=== PATIENT | female | born 1970 | race Caucasian/White ===

== ENCOUNTER → 2017-06-05 20:13 | Outpatient (REF) | payer BC, SELFPAY | LOC: LAB 20:13 | PROVIDERS: Visit Provider Nurse Practitioner Family ==

== ENCOUNTER → 2019-04-22 15:13 | Outpatient (POV) | payer BC, SELFPAY ==
[2019-04-22 15:41] VITALS: BP 148/87; PULSE 85; RESP 18; O2SAT 99; BMI 39.9
--- NOTE | 2019-04-22 16:03 | XR_ITS ---
PROCEDURE: XR MULTIPLE SPINE 6+V CLINICAL INDICATION: BACK PAIN COMPARISON: No exams were available for comparison FINDINGS: There is no acute fracture dislocation or destructive lesion. Mild degenerative disc disease is seen in the midthoracic spine with some loss of disc space heights perhaps greatest at T7-8 IMPRESSION: No acute findings. Mild degenerative disc disease Dictated by: Georges Del Rio 04/22/2019 16:54 Electronically signed by Georges Del Rio in [facility] 04/22/2019 16:54
--- NOTE | 2019-04-22 16:04 | XR_ITS ---
PROCEDURE: XR SACROILIAC JOINT BI MIN 3V CLINICAL INDICATION: BACK PAIN COMPARISON: None. FINDINGS: There is sclerosis of the sacral and iliac sides of both SI joints compatible with mild sacroiliitis. There is no ankylosis or other focal bony lesion. IMPRESSION: Mild bilateral sacroiliitis Dictated by: Georges Del Rio 04/22/2019 16:52 Electronically signed by Georges Del Rio in [facility] 04/22/2019 16:52
--- NOTE | 2019-04-23 09:25 | HMH.PMCON ---
Assessment and Plan (1) Back pain Current visit: Yes Status: Resolved Category: Medical Code(s): M54.9 - Dorsalgia, unspecified (2) Chronic SI joint pain Current visit: Yes Status: Chronic Category: Medical Code(s): M53.3 - Sacrococcygeal disorders, not elsewhere classified; G89.29 - Other chronic pain - Assessment and plan all Dx Assessment and Plan for all problems:: We will order x-rays to the patient of her thoracic lumbar and SI joint. We will follow-up with her 1 week we will reassess her at that time she is been instructed to call the office if she has any issues prior to her next appointment. Dr. Levin has reviewed this note and agrees with this plan of care. This note was dictated using voice recognition software and may contain errors or omissions HPI - Data of Consult Consult date: 04/22/19 Requesting Physician: Beena Nixon APRN Primary Care Provider: Khari Blood MD - Consult Narrative Reason for consult: Back pain, leg pain History of present illness: Ms. Marmolejo is a 48 year old female who presents today for consultation in regards to her low back thoracic and leg pain. Patient has had injections in the past however she did not return back in 2017. Patient rates her pain today a 5 out of 10 mostly in her thoracic spine along with her low back and her hips. Patient does have a positive Bry sign Sean's sign and SI joint compression sign bilaterally. Patient also has decreased range of motion with her thoracic spine. She has no updated imaging we will move forward with getting some x-rays to help determine pathophysiology. She is tried and failed medications with no long-term relief. CC: Beena Nixon APRN [facility] History I have reviewed the patient's past medical history: Yes Medical History: Reports:: Depression, Migraine *Have you ever received a pneumonia vaccine?: Yes *Have you received a flu vaccine this season?: Yes Other Medical History: Reports: Anemia, Thyroid Disease Other Surgeries: Yes: , Tubal Ligation Amputation: No Fractures: No - *Social History Smoking Status: Never smoker Alcohol Intake: never Alcohol Intake Frequency:: holidays/special occasions only Substance Use Type: denies use *Occupational Status:: other Housing: house Household Members: family *Travel in the last 8 weeks: None - Psychiatric History Pschychiatric History:: Reports:: Depression Family Hx:: Cancer, Stroke, Diabetes, Hypertension Review of Systems - Review of Systems ROS General: no recent weight change, no fever, no sleep disturbances Respiratory: no cough, no shortness of air, no recurring pulmonary infections Cardiovascular/Peripheral Vascular: No chest pain, No palpitations, no edema, no shortness of breath. Gastrointestinal: no new onset incontinence, normal bowel movements reported Genitourinary: no new onset incontinence Musculoskeletal: Back pain, leg pain Psychiatric: normal mood/ affect Neurological: [denies new onset weakness in extremities], [denies new onset balance issues] Meds Home Medications Medication Instructions Recorded Confirmed Type gabapentin 400 mg capsule 400 mg PO BID cap 06/05/17 09/25/18 History topiramate 25 mg tablet 25 mg PO BID tab 06/05/17 09/25/18 History bupropion HCl 150 mg 24 hr tablet, PO #30 tab 07/31/18 09/25/18 History extended release levothyroxine 25 mcg tablet PO #90 tab 07/31/18 09/25/18 History trazodone 50 mg tablet PO #30 tab 07/31/18 09/25/18 History amoxicillin 500 mg capsule 500 mg PO Q12H 10 Days #20 cap 09/10/18 09/25/18 Rx phentermine 37.5 mg tablet 37.5 mg PO DAILY #30 tab 09/25/18 09/25/18 Rx Allergies Allergy/AdvReac Type Severity Reaction Status Date / Time No Known Allergies Allergy Verified 09/25/18 09:13 Objective Vital signs: Pulse Resp BP Pulse Ox 85 18 148/87 H 99 04/22/19 15:41 04/22/19 15:41 04/22/19 15:41 04/22/19 15:41 Narrative
== END ==
PROVIDERS: PCP Family Medicine; Visit Provider Clinical Nurse Specialist Family Health
DX: M54.9 Dorsalgia, unspecified (principal); M53.3 Sacrococcygeal disorders, not elsewhere classified; F32.9 Major depressive disorder, single episode, unspecified; G43.909 Migraine, unspecified, not intractable, without status migrainosus; D64.9 Anemia, unspecified; E07.9 Disorder of thyroid, unspecified; Z82.3 Family history of stroke; Z82.49 Family history of ischemic heart disease and other diseases of the circulatory system
CPT/HCPCS: 72084; 72202; 99202

== ENCOUNTER → 2019-04-30 10:18 | Outpatient (POV) | payer BC, SELFPAY ==
[2019-04-30 11:25] VITALS: BP 120/60; PULSE 68; RESP 18; O2SAT 99; BMI 39.3
--- NOTE | 2019-04-30 12:42 | HMH.PAINSOAP ---
[facility] Pain Management SOAP Note Subjective:: Patient is a pleasant 48-year-old white female who presents today for follow-up after x-rays. Patient has degenerative changes within her thoracic spine she does have an MRI from 2017 showing a T6-T7 protrusion right of midline that effaces the thecal sac and abuts the thoracic cord slightly. Patient states that she has pain exaggerated in this area with activity. It is radiated sometimes into her intercostal space. Patient and I discussed treatment. She is a little frustrated today because she feels like she is been to multiple physicians and she has not been able to pinpoint the source of her pain. We will start her on some diclofenac 75 mg 1 p.o. twice daily. We also will do a epidurals steroid injection at the T6-T7 level. We will help determine the level of pain generation. She is not on any anticoagulation therapy. She is tried physical therapy. She is continuing a home stretching program. ROS General: no recent weight change, no fever, no sleep disturbances Respiratory: no cough, no shortness of air, no recurring pulmonary infections Cardiovascular/Peripheral Vascular: No chest pain, No palpitations, no edema, no shortness of breath. Gastrointestinal: no new onset incontinence, normal bowel movements reported Genitourinary: no new onset incontinence Musculoskeletal: Back pain Psychiatric: normal mood/ affect Neurological: [denies new onset weakness in extremities], [denies new onset balance issues] Objective:: Physical Exam General: Alert and oriented x3, no acute distress, pleasant and cooperative, [on room air] Lungs: Resps E/U, Symmetrical chest expansion, Eyes: PERRL Musculoskeletal: Flexion and extension of thoracic spine somewhat guarded secondary to pain, deep tendon reflexes normal, strength in upper and lower extremities [5/5], slightly antalgic gait noted Neurological: speech clear, directional driller equal, no gross sensory deficits Assessment:: Generative disc 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 twice daily. We will help try to identify the pain generator. Patient is a little bit frustrated in regards to knowing exactly where her pain is coming from. I will follow-up with her after injection reassess her symptoms at that time she is been instructed to call the office if she has any issues prior to her next appointment. Dr. Levin has reviewed this note and agrees with this plan of care. This note was dictated using voice recognition software and may contain errors or omissions [facility] History I have reviewed the patient's past medical history: Yes Medical History: Reports:: Depression, Migraine *Have you ever received a pneumonia vaccine?: Yes *Have you received a flu vaccine this season?: Yes Other Medical History: Reports: Anemia, Thyroid Disease Other Surgeries: Yes: , Tubal Ligation Amputation: No Fractures: No - *Social History Smoking Status: Never smoker Alcohol Intake: never Alcohol Intake Frequency:: holidays/special occasions only Substance Use Type: denies use *Occupational Status:: other Housing: house Household Members: family *Travel in the last 8 weeks: None - Psychiatric History Pschychiatric History:: Reports:: Depression Family Hx:: Cancer, Stroke, Diabetes, Hypertension
== END ==
PROVIDERS: PCP Family Medicine; Visit Provider Clinical Nurse Specialist Family Health
DX: M51.14 Intervertebral disc disorders with radiculopathy, thoracic region (principal)
CPT/HCPCS: 99212

== ENCOUNTER → 2019-08-12 15:58 | Outpatient (POV) | payer BC, SELFPAY ==
--- NOTE | 2019-08-13 08:30 | HMH.VVPMSO ---
[facility] Virtual Visit SOAP Consent for virtual visit:: With the recent concerns about the COVID-19, we are trying to minimize exposure to you by shifting to telehealth appointments whenever possible. It restricts me from seeing you in person, but the trade off is protecting you during this pandemic. Can you see and hear me okay, and do you consent to this option? If not, I would be happy to see if we can reschedule your appointment in the future, when feasible. Has patient consented to this virtual visit?: Yes Subjective:: Patient is a pleasant 48-year-old white female who presents today for follow-up after thoracic epidural injection. She is doing extremely well however she is noted that now her lower back is bothering her with radiation into her hips and legs. Patient has gotten 90% relief with her thoracic injection she would like to move forward with a epidural injection of her lower spine. She rates her low back pain today a 6 out of 10. ROS General: no recent weight change, no fever, no sleep disturbances Respiratory: no cough, no shortness of air, no recurring pulmonary infections Cardiovascular/Peripheral Vascular: No chest pain, No palpitations, no edema, no shortness of breath. Gastrointestinal: no new onset incontinence, normal bowel movements reported Genitourinary: no new onset incontinence Musculoskeletal: Back pain, leg pain Psychiatric: normal mood/ affect Neurological: [denies new onset weakness in extremities], [denies new onset balance issues] Objective:: Physical exam: Constitutional: Healthy appearing, well-developed, alert, in no acute distress Psychiatric: Judgment and insight intact, Alert and oriented x4 Mood and affect: Mood normal, affect appropriate Head and face: Inspection: Normocephalic atraumatic, extraocular movement intact Respiratory: Breathing nonlabored, nondyspneic Cardiovascular: No cyanosis, clubbing, or edema observed Skin: Head and neck: Skin with no lesions or rash observed Gait: Able to walk without assistive device: Able to heel and toe walk Neurologic: Sensation grossly intact per patient Musculoskeletal: Decreased range of motion lumbar spine noted Assessment:: Degenerative disc disease lumbar spine with lumbar radiculopathy degenerative disc disease thoracic spine Plan:: We will move him forward with an L4-L5 lumbar epidural steroid injection given the efficacy of her previous injections I do believe that this would benefit her. Patient is been instructed to call the office if she has any issues prior to her next appointment. She is not on any anticoagulation therapy. She is continuing anti-inflammatories. This encounter was performed as a telemedicine visit via secure 2 way video and audio to minimize risk and transmission of Covid-19. The patient and we understand the limitations of a telemedicine visit including inability to check reflexes, possibly missing subtle findings on physical exam. Alternative options were presented to the patient and the patient elected to proceed with the visit. We specifically discussed risk factors for Covid-19 including age, heart or lung disease, diabetes, immunosuppression and travel. We also discussed that NSAIDs may worsen Covid-19 infection symptoms and that they should not be used to treat Covid-19 symptoms. Patient was also informed that corticosteroids in any form oral or injectable will decrease immune response and may increase risk of Covid-[address] Levin has reviewed this patient's chart and this note and agrees with plan of care. Patient has been instructed to call the office if they have any issues prior to the next appointment. Time In:: 15:30 Time Out:: 15:45 [facility] History I have reviewed the patient's past medical history: Yes Medical History: Reports:: Depression, Migraine Denies:: Diabetes Mellitus Type 2 *Have you ever received a pneumonia vaccine?: Yes *Have you received a flu vaccine this season?: Y
== END ==
PROVIDERS: Visit Provider Clinical Nurse Specialist Family Health
DX: M51.16 Intervertebral disc disorders with radiculopathy, lumbar region (principal); M51.34 Other intervertebral disc degeneration, thoracic region
CPT/HCPCS: 99212

== ENCOUNTER 2019-08-23 14:15 | Day surgery (SDC) | payer BC, SELFPAY ==
[2019-08-23 14:30] VITALS: BP 116/72; PULSE 62; RESP 18; TEMP 36.6; O2SAT 98; BMI 42.0
[2019-08-23 15:05] VITALS: BP 110/78; BP 111/85; PULSE 72; PULSE 77; RESP 18; O2SAT 98
--- NOTE | 2019-08-23 15:10 | HMH.PMPROC ---
- Procedure Date: 08/23/19 Time: 15:10 Anesthesiologist:: Yan Levin MD Complications:: None Pre-procedure Diagnosis:: Degenerative disc disease of lumbar spine with lumbar radiculopathy symptoms Post-procedure Diagnosis:: Same Indications for Procedure:: This patient is a pleasant 48-year-old white female who we are treating for low back pain with lumbar radicular symptoms she has increasing pain in her back rating down her legs. We will do a lumbar epidural steroid injection today to see if this will help with her pain symptoms. She is got 90% relief with her thoracic epidural steroid injection. We will do a lumbar epidural steroid injection today. Procedure Details:: Lumbar epidural steroid injection under fluoroscopy Informed consent was obtained and the risk and benefits of the procedure was explained to the patient. The patient was taken to the procedure room. The patient was placed prone on the procedure table. The patient was prepped and draped in sterile fashion. C-arm fluoroscopy was used to view the lumbar spine. Skin and subcutaneous tissues were anesthetized using lidocaine. I placed an 18-gauge epidural needle and advanced into the L4-L5 interspace using fluoroscopic guidance and [id number] to air. After confirmation of needle placement in the epidural space with dye I injected 2 mL of lidocaine 1.5% with Depo-Medrol 80 mg. Patient tolerated the procedure well with no complications. Plan and Disposition:: We will follow-up with her in 2 weeks. Will reevaluate symptoms at that time.
[2019-08-23 15:13] VITALS: BP 150/81; PULSE 67; RESP 20; O2SAT 97
== END 2019-08-23 15:14 | disposition home or self-care (01) ==
LOC: SC.PAINP 14:16
PROVIDERS: PCP Family Medicine; Visit Provider Anesthesiology
DX: M51.16 Intervertebral disc disorders with radiculopathy, lumbar region (principal); E03.9 Hypothyroidism, unspecified; Z72.0 Tobacco use; F41.9 Anxiety disorder, unspecified; F32.9 Major depressive disorder, single episode, unspecified; D64.9 Anemia, unspecified
CPT/HCPCS: 62323; J1040; Q9966

== ENCOUNTER → 2019-09-24 09:14 | Outpatient (POV) | payer BC, SELFPAY ==
--- NOTE | 2019-09-24 13:21 | P.CONS_ITS ---
[facility] Virtual Visit SOAP Consent for virtual visit:: With the recent concerns about the COVID-19, we are trying to minimize exposure to you by shifting to telehealth appointments whenever possible. It restricts me from seeing you in person, but the trade off is protecting you during this pandemic. Can you see and hear me okay, and do you consent to this option? If not, I would be happy to see if we can reschedule your appointment in the future, when feasible. Has patient consented to this virtual visit?: Yes Subjective:: Patient is a pleasant 48-year-old white female who presents today for a telehealth visit in regards to the follow-up on her lumbar epidural steroid injection. She states her pain is a 1 out of 10 and she is doing fantastic. Patient would like to follow-up on an as-needed basis. She has had 1 thoracic epidural injection 1 lumbar epidural injection. ROS General: no recent weight change, no fever, no sleep disturbances Respiratory: no cough, no shortness of air, no recurring pulmonary infections Cardiovascular/Peripheral Vascular: No chest pain, No palpitations, no edema, no shortness of breath. Gastrointestinal: no new onset incontinence, normal bowel movements reported Genitourinary: no new onset incontinence Musculoskeletal: Back pain, Psychiatric: normal mood/ affect, Neurological: [denies new onset weakness in extremities], [denies new onset balance issues] Objective:: Physical exam: Constitutional: Healthy appearing, well-developed, alert, in no acute distress Psychiatric: Judgment and insight intact, Alert and oriented x4 Mood and affect: Mood normal, affect appropriate Head and face: Inspection: Normocephalic atraumatic, extraocular movement intact Respiratory: Breathing nonlabored, nondyspneic Cardiovascular: No cyanosis, clubbing, or edema observed Skin: Head and neck: Skin with no lesions or rash observed Gait: Able to walk without assistive device: Able to heel and toe walk Neurologic: Sensation grossly intact per patient Musculoskeletal: Thoracic and lumbar flexion extensions somewhat guarded. Assessment:: Degenerative disc disease thoracic spine thoracic radiculopathy degenerative disc disease lumbar spine lumbar radiculopathy Plan:: We will see the patient on an as-needed basis she has been encouraged to call our office if her pain begins to return. Dr. Levin has reviewed this note and agrees with this plan of care. This note was dictated using voice recognition software and may contain errors or omissions Time In:: 09:00 Time Out:: 09:10 [facility] History I have reviewed the patient's past medical history: Yes Medical History: Reports:: Depression, Migraine Denies:: Cancer, Diabetes Mellitus Type 1, Diabetes Mellitus Type 2, MRSA, Seizures *Have you ever received a pneumonia vaccine?: Yes *Have you received a flu vaccine this season?: Yes Other Medical History: Reports: Anemia, Thyroid Disease Other Surgeries: Yes: , Tubal Ligation Amputation: No Fractures: No - *Social History Smoking Status: Current every day smoker Tobacco Type: cigarettes # Packs/Day (cigarettes): 1 Alcohol Intake: current Alcohol Intake Frequency:: holidays/special occasions only Substance Use Type: denies use *Occupational Status:: other Housing: house Household Members: family *Travel in the last 8 weeks: None - Psychiatric History Pschychiatric History:: Reports:: Depression Family Hx:: Cancer, Stroke, Diabetes, Hypertension
--- NOTE | 2019-10-15 15:51 | PC.NURSE ---
diclofenac 75mg bid called into [facility] per provider order
== END ==
PROVIDERS: Visit Provider Clinical Nurse Specialist Family Health
DX: M51.14 Intervertebral disc disorders with radiculopathy, thoracic region (principal); M51.16 Intervertebral disc disorders with radiculopathy, lumbar region
CPT/HCPCS: 99212

== ENCOUNTER → 2019-12-11 11:54 | Outpatient (CLI) | payer BC, SELFPAY ==
--- NOTE | 2019-12-11 11:58 | XR_ITS ---
PROCEDURE: XR SHOULDER RT MIN 2V CLINICAL INDICATION: ACUTE PAIN OF R SHOULDER COMPARISON: No exams were available for comparison FINDINGS: No fracture or dislocation. No lytic or blastic change. There is normal mineralization. There is subacromial stenosis on the right. Other findings:None. IMPRESSION: Mild subacromial stenosis otherwise negative right shoulder Dictated by: Jarod Parnell MD 12/11/2019 15:09 Jarod Parnell MD in [facility] 12/11/2019 15:09
== END ==
PROVIDERS: PCP Family Medicine; Visit Provider Physician Assistant
DX: M25.511 Pain in right shoulder (principal)
CPT/HCPCS: 73030

== ENCOUNTER → 2019-12-20 16:33 | Outpatient (CLI) | payer BC, SELFPAY ==
--- NOTE | 2019-12-20 16:42 | MR_ITS ---
PROCEDURE: MR SHOULDER RT WO CON CLINICAL INDICATION: ACUTE PAIN OF RIGHT SHOULDER, IMPINGEMENT RT SHOULDER PAIN AND SWELLING, LIMITED RANGE OF MOTION, WEAKNESS IN HANDS AND FINGERS. SYMPTOMS X1 YEAR. PREVIOUS XRAY 12-11-19 COMPARISON: CR XR SHOULDER RT MIN 2V from 12/11/2019 TECHNIQUE: Routine multiplanar multi echo sequences are performed without gadolinium enhancement. FINDINGS: There is diffuse bone marrow edema with decreased T1 and increased T2 signal involving the acromioclavicular joint with hypertrophic changes at the AC joint. There is some mild impingement upon the supraspinatus tendon superiorly from the hypertrophic change. There is thickening with increased T2 signal of the supraspinatus tendon. There is discontinuity of the supraspinatus tendon anteriorly consistent with a full-thickness tear. The tear however does not appear to be complete. Tendinopathy/tendinosis is present involving the posterior aspect of the supraspinatus tendon with partial tear also present at this region. The infraspinatus tendon appears intact as does the teres minor and subscapularis. No obvious labral tear is evident. The bicipital tendon is in place. IMPRESSION: 1. Acromioclavicular arthropathy. There is moderate amount of bone marrow edema within the distal clavicle and a chromium with bony hypertrophy and some mild sub chondral cystic changes of the distal clavicle. There is some mild impingement upon the supraspinatus tendon. 2. Full-thickness tear involves the anterior aspect of the supraspinatus with partial tear of the posterior aspect of the supraspinatus with tendinopathy/tendinosis. A complete tear is not felt to be present. Dictated by: Jarod Parnell MD 12/21/2019 11:51 Jarod Parnell MD in [facility] 12/21/2019 11:51
== END ==
PROVIDERS: PCP Physician Assistant; Visit Provider Physician Assistant
DX: M25.511 Pain in right shoulder (principal); M75.41 Impingement syndrome of right shoulder; M62.81 Muscle weakness (generalized)
CPT/HCPCS: 73221